=== PATIENT | male | born 1990 | race African-American/Black ===

== ENCOUNTER 2016-09-13 09:45 | Emergency (ER) | payer MEDICAID ==
[~2016-09-13] VITALS: Ht 190.5 cm; Wt 71.7 kg
[~2016-09-13 09:45] MED LIST: ACET-9533 PO; ARIP10TA28 PO; ASCO500T45 PO; Acetaminophen PO; DOCU-67 PO; Escitalopram Oxalate PO; FERR-193 PO; PIPE1PDS28 IV; RIVA15TA1 PO; VANC1PDS13 IV
[2016-09-13 09:49] VITALS: BP 108/62
--- NOTE | 2016-09-13 09:54 | NUR ---
Patient ambulated to bed 05.
--- NOTE | 2016-09-13 09:55 | NUR ---
26M BIB MOTHER C/O LACERATION TO LEFT FOOT BETWEEN BIG TOE AND 2ND DIGIT OF UNKNOWN CAUSE X THIS MORNING. HX: PARAPLEGIA ;USES W/C, DEPRESSION, DVT; BOTH LOWER LEGS SWELLING.DENIES N/V/D; CHRONIC WOUND R SIDE OF SACRUM, BLL; AAOX4 ,LUNGS CLEAR BL; HR EVEN AND REGULAR; PT DENIES ANY FEVER, CP, SOB, OR COUGH AT THIS TIME; PATIENT STATES PAIN OF 0/10 AT THIS TIME; VSS; PATIENT POSITIONED FOR COMFORT; HOB ELEVATED; BEDRAILS UP X2; BED DOWN. ER MADE AWARE OF PT STATUS. Addendum: 09/13/16 at 1030 by [facility] MOTHER STS PT DISCHARGED FROM [facility] [place] LAST SUNDAY. HOME HEALTH NURSE VISIT PT EVERY M,W & F. LAST VISITTED Aug.
--- NOTE | 2016-09-13 09:55 | NUR ---
Note undone in EDM - 09/13/16 at 1019 by [email or web address] 26M BIB FAMILY C/O LACERATION TO LEFT FOOT BETWEEN BIG TOE AND 2ND DIGIT OF UNKNOWN CAUSE X THIS MORNING. HX: PARAPLEGIA ;USES W/C, DEPRESSION, DVT. DENIES N/V/D; SKIN IS PINK/WARM/DRY; AAOX4 ,LUNGS CLEAR BL; HR EVEN AND REGULAR; PT DENIES ANY FEVER, CP, SOB, OR COUGH AT THIS TIME; PATIENT STATES PAIN OF 0/10 AT THIS TIME; VSS; PATIENT POSITIONED FOR COMFORT; HOB ELEVATED; BEDRAILS UP X2; BED DOWN. ER MD MADE AWARE OF PT STATUS.
--- NOTE | 2016-09-13 10:11 | NUR ---
Note undone in [facility] - 09/13/16 at 1104 by [email or web address] WOUND CARE DONE BY KAYLA SELLERS. PT TOLERATED PROCEDURE WELL. Addendum: 09/13/16 at 1034 by [email or web address] Amendment undone in [facility] - 09/13/16 at 1104 by [email or web address] MOTHER AT BEDSIDE.
--- NOTE | 2016-09-13 10:11 | NUR ---
WOUND DRESSING TO L FOOT DONE BY KAYLA SELLERS. PT TOLERATED PROCEDURE WELL.
--- NOTE | 2016-09-13 10:17 | NUR ---
Dr. Velasco evaluating patient at bedside.
[2016-09-13] MEDS ORDERED: BACITRACIN OINT 500 UNITS/GM PKT TP ONE (10:20)
[2016-09-13] MEDS ORDERED: LIDOCAINE 1% 500 MG/50 ML VIAL INJ ONE (10:20)
--- NOTE | 2016-09-13 11:00 | NUR ---
L BIG TOE NAIL EXTRACTION & SUTURE L FOOT DONE BY ER MD DR SILVER. PT TOLERATED PROCEDURE WELL.
[2016-09-13 11:17] VITALS: BP 114/74
--- NOTE | 2016-09-13 11:17 | NUR ---
Patient discharged with v/s stable. Written and verbal after care instructions given and explained. Patient verbalized understanding. Wheel Chair Assisted with to car. All questions addressed prior to discharge. Advised to follow up with PMD.
== END 2016-09-13 11:17 | disposition home or self-care (01) ==
LOC: MED 09:45
DX: S91.312A Laceration without foreign body, left foot, initial encounter (principal); X58.XXXA Exposure to other specified factors, initial encounter; Y93.89 Activity, other specified; Y92.89 Other specified places as the place of occurrence of the external cause; Y99.8 Other external cause status
CPT/HCPCS: 11730; 99284; J2001